=== PATIENT | male | born 1990 | race Caucasian/White ===

== ENCOUNTER 2023-03-08 16:21 | Emergency (ER) | payer OTHER ==
[~2023-03-08] VITALS: Ht 175.3 cm; Wt 98.9 kg
[2023-03-08 17:02] VITALS: BP 152/91; PULSE 56; RESP 16; TEMP 98; O2SAT 98
[2023-03-08] MEDS ORDERED: IBUP-2213 PO (19:06)
== END 2023-03-08 19:54 | disposition home or self-care (01) ==
LOC: MED 16:21
DX: M54.6 Pain in thoracic spine (principal); Z79.899 Other long term (current) drug therapy
CPT/HCPCS: 71045; 99283